=== PATIENT | female | born 1940 | race American Indian/Alaskan Native ===

== ENCOUNTER → 2018-01-04 | Outpatient (CLI) | payer OTHER, MEDICARE ==
[~2018-01-04] VITALS: Ht 165.1 cm; Wt 67.6 kg
[~2018-01-04] MED LIST: ADVAIR HFA 45MC1 AER INH; AMBIEN 5 MG TABL5 M1 PO; APAP500 PO; ASPIRIN EC81 M1 PO; ASPIRIN325 PO; BYSTOLIC 5 MG5 M1 PO; FISH OIL 1,001000 MG PO; HYDROCHLOROTH12.5 MG PO; LEVOTHYROXIN0.125 M1 PO; LEVOTHYROXINE 0.1 MG PO; LEVOXYL75 MCG PO; LISINOPRIL5 MG PO; LODINE 200MG C200 M1 PO; MOBIC15 MG PO; MULTIVITAMINS1 EAC7 PO; NABUMETONE 500500 M1 PO; NITROGLYCERIN0.4 MG SUBLING; OMEPRAZOLE20 M2 PO; OXYCODONE-ACET1 EAC2 PO; PERCOCET 10-651 EACH PO; PLAVIX 75 MG TA75 M1 PO; PRAVASTATIN SOD40 MG PO; RESTASIS1 EACH OPHTHALMIC; TRAMADOL 50 MG50 MG PO; VITAMIN D35000 UNI1 PO; ZEBETA5 MG PO; ZOFRAN4 MG PO
[2018-01-04 14:32] VITALS: BP 153/54
== END | disposition home or self-care (01) ==
LOC: PAIN 06:57
DX: M54.12 Radiculopathy, cervical region (principal); Z88.8 Allergy status to other drugs, medicaments and biological substances; Z91.041 Radiographic dye allergy status; Z79.899 Other long term (current) drug therapy; Z87.891 Personal history of nicotine dependence

== ENCOUNTER → 2018-04-05 | Outpatient (CLI) | payer OTHER, MEDICARE ==
[~2018-04-05] VITALS: Ht 165.1 cm; Wt 69.0 kg
--- NOTE | ~2018-04-05 | HPC ---
[facility] [address] [address] PAIN MANAGEMENT CONSULTATION Name: BRIGITTE INGRAM Room #: REG [facility] M..#: [id number] Admission: 04/05/18 Attend Phys: Harsh Aranda MD Discharge: Date of : 36 Report #: [id number] THIS REPORT FOR: //name// CC: ALOK MORENO Physician staff Harsh Aranda DATE OF SERVICE: 04/05/2018 Followup visit for cervical pain. The patient presents today with a new MRI, which I have been able to review, and I also reviewed the report from the radiologist. She has significant degenerative changes throughout the spine, which are consistent with age. She also has an anterior cervical diskectomy and fusion that has been performed at the level of C2-C3. At that level, she has moderate to severe bilateral facet arthropathy and buckling of the ligamentum flavum. This creates some foraminal stenosis bilaterally. She has similar findings also at C3-C4. There is some mild canal stenosis at several levels due to both ligamentum flavum thickening and protrusion of cervical disks. She has chronic deformities of compression fracture at T1, T4 and T5 noted also on the thoracic MRI. Most of her pain today is radiating up to the occiput, it follows a C2-C3 distribution. I do believe this is cervicogenic and generated likely from the area around the fusion. PHYSICAL EXAMINATION: A pleasant 78-year-old, 5 feet 5 inches, 152 pounds, BMI is 25.3. Blood pressure 168/72, heart rate 59, respirations 16. Pain intensity 6-7/10. She has tenderness at the base of the occiput. She has pain with rotational movements. She has pain that radiates up to the top of the head with neck movements. All neck movements are restricted. IMPRESSION: Cervicalgia related to facet arthropathy C2-C3, C3-C4. RECOMMENDATIONS: Facet injections bilaterally under fluoroscopic guidance. We will perform these when she has a six horse hitch driver and after we received preauthorization. She was discharged to return for the injections in the future. Appointment scheduled. By: [id number] Harsh Aranda MD /nt
[2018-04-05 14:48] VITALS: BP 168/72
--- NOTE | 2018-04-05 15:08 | NUR ---
Pain Clinic Assessment: 1. History of Osteoarthritis: History of Rheumatoid Arthritis: 2. Height: 5 ft. 5 in. 165.1 cm. Weight: 152.2 lb. oz. 69.037 kg. Patient's BMI: 25.3 3. Vital Signs: BP: 168/72 Pulse: 59 Resp: 16 Temp: 02 Sat: 98 ECG Mon: 4. Pain Intensity: 6-7 5. Fall Risk: Dizziness: N Needs help standing or walking: N Fallen in the last 3 months: N Fall risk comments: 6. Patient on Blood Thinner: Clopidogrel Bisulf(Plavix 7. History of Hypertension: N 8. Opioid Therapy greater than 6 weeks: N Opiate Contract Signed: 9. Risk Assessment Tool Provided: 10. Functional Assessment Tool: 11. Recreational Drug Use: Unknown Drug Type: Tobacco Use: Former Smoker Tobacco Type: Amount or Packs/day: How Many Years: Alcohol Use: No Frequency: Quant:
== END ==
LOC: PAIN 07:20
DX: M47.812 Spondylosis without myelopathy or radiculopathy, cervical region (principal); M12.88 Other specific arthropathies, not elsewhere classified, other specified site; Z79.899 Other long term (current) drug therapy

== ENCOUNTER → 2018-04-23 | Outpatient (CLI) | payer OTHER, MEDICARE ==
[~2018-04-23] VITALS: Ht 165.1 cm; Wt 68.1 kg
[~2018-04-23] MED LIST changes: +CELECOXIB100 MG PO
--- NOTE | ~2018-04-23 | HPC ---
[facility] [address] [place] [address] PAIN MANAGEMENT CONSULTATION Name: BRIGITTE INGRAM Room #: REG Marni Clifton.#: [id number] Admission: 04/23/18 Attend Phys: Harsh Aranda MD Discharge: Date of : 36 Report #: [id number] THIS REPORT FOR: //name// CC: ALOK Peralta Physician staff Harsh Aranda DATE OF SERVICE: 04/23/2018 Followup visit for cervicalgia with facet arthropathy and spondylosis. The patient returns to pain clinic today for facet injections. She has an anterior cervical diskectomy and fusion at C2-C3. She has pain emanating from the area around her fusion, particularly above the level. She has pain that radiates through the occiput as well as pain with rotational and lateral tilt maneuvers. I saw her roughly 2 weeks ago, please see that documentation and dictation. We have scheduled her today for facet injections under fluoroscopic guidance. Procedure explained in some detail. She would like to proceed today with the injections. This may be diagnostic as well as therapeutic. PHYSICAL EXAMINATION: She is a kita 78-year-old. Blood pressure 169/79, heart rate 66, respirations 16. She scores her pain today as 7/10. She has pain with neck extension, rotation and lateral tilt. Pain radiates in a referred pattern consistent with the upper facet joints up into the occiput, although she also has some lower facet arthropathy referral into the left shoulder. She has local tenderness overlying the joints posteriorly and laterally. IMPRESSION: 1. Cervicalgia with referred pain related to facet arthropathy C2-C3, C3-C4. 2. Status post anterior cervical diskectomy and fusion. PROCEDURE: Bilateral C2-C3, C3-C4 facet injections under fluoroscopic guidance. DESCRIPTION OF PROCEDURE: After informed consent, she was taken to fluoroscopic suite. She was placed in the prone position. Skin prepped first on the right. Using biplanar fluoroscopic views, I anesthetized the skin and then gently advanced a 25-gauge needle into the joint capsule at C2-C3 and C3-C4. AP and lateral views confirmed location and with the AP view, I injected a 0.25 mL of Omnipaque demonstrating good spread along the capsule with some extension into the facet joint at C2-C3 and no vascular uptake. I then followed this with 1 mL of 0.5% lidocaine mixed with 2 mg of Decadron at each joint level. The needle was removed. The patient was allowed to reposition. I then repeated the procedure in the same fashion on the left injecting the C2-C3, C3-C4 facet joints using the same technique. She tolerated the procedure well. There were [address] [address] PAIN MANAGEMENT CONSULTATION Name: BRIGITTE INGRAM Room #: REG ALEXANDER Quan#: [id number] Admission: 04/23/18 Attend Phys: Harsh Aranda MD Discharge: Date of : 36 Report #: [id number] no complications. She was taken to recovery room for observation. At the time of discharge, it should be noted that her pain score had dropped to 0. She is instructed to resume her Plavix. Followup visit is scheduled for 1 month. We may consider repeating these injections depending on duration of response. A favorable response, I think would give us a good indication that her primary pain generator here is facet joint rather than neuropathic pain. By: [id number] Harsh Aranda MD /nt
[2018-04-23 10:23] VITALS: BP 160/79
--- NOTE | 2018-04-23 10:29 | NUR ---
Pain Clinic Assessment: 1. History of Osteoarthritis: History of Rheumatoid Arthritis: 2. Height: 5 ft. 5 in. 165.1 cm. Weight: 150.2 lb. oz. 68.130 kg. Patient's BMI: 25.0 3. Vital Signs: BP: 160/79 Pulse: 66 Resp: 16 Temp: 02 Sat: 97 ECG Mon: 4. Pain Intensity: 5 5. Fall Risk: Dizziness: N Needs help standing or walking: N Fallen in the last 3 months: N Fall risk comments: 6. Patient on Blood Thinner: Clopidogrel Bisulf(Plavix 7. History of Hypertension: N 8. Opioid Therapy greater than 6 weeks: N Opiate Contract Signed: 9. Risk Assessment Tool Provided: LOW 10. Functional Assessment Tool: 11. Recreational Drug Use: Never Drug Type: Tobacco Use: Former Smoker Tobacco Type: Amount or Packs/day: How Many Years: Alcohol Use: No Frequency: Quant:
== END | disposition home or self-care (01) ==
LOC: PAIN 07:12
DX: M47.892 Other spondylosis, cervical region (principal); M54.2 Cervicalgia; M12.88 Other specific arthropathies, not elsewhere classified, other specified site; Z98.1 Arthrodesis status; Z98.890 Other specified postprocedural states; Z88.8 Allergy status to other drugs, medicaments and biological substances; Z79.899 Other long term (current) drug therapy; Z87.891 Personal history of nicotine dependence

== ENCOUNTER → 2018-06-04 | Outpatient (CLI) | payer OTHER, MEDICARE ==
[~2018-06-04] VITALS: Ht 165.1 cm; Wt 67.6 kg
[~2018-06-04] MED LIST changes: +HYDROCODONE-AP1 EA11 PO
[2018-06-04 10:10] VITALS: BP 143/56
--- NOTE | 2018-06-04 10:24 | NUR ---
Pain Clinic Assessment: 1. History of Osteoarthritis: History of Rheumatoid Arthritis: 2. Height: 5 ft. 5 in. 165.1 cm. Weight: 149.0 lb. oz. 67.586 kg. Patient's BMI: 24.8 3. Vital Signs: BP: 143/56 Pulse: 70 Resp: 16 Temp: 02 Sat: 97 ECG Mon: 4. Pain Intensity: 7-8 RIGHT SIDE 5. Fall Risk: Dizziness: N Needs help standing or walking: N Fallen in the last 3 months: N Fall risk comments: 6. Patient on Blood Thinner: Clopidogrel Bisulf(Plavix 7. History of Hypertension: N 8. Opioid Therapy greater than 6 weeks: N Opiate Contract Signed: 9. Risk Assessment Tool Provided: LOW 10. Functional Assessment Tool: 11. Recreational Drug Use: Never Drug Type: Tobacco Use: Former Smoker Tobacco Type: Amount or Packs/day: How Many Years: Alcohol Use: No Frequency: Quant:
--- NOTE | 2018-06-06 15:29 | HPC ---
[facility] [address] [place] [address] PAIN MANAGEMENT CONSULTATION Name: BRIGITTE INGRAM Room #: REG Marni MLuanne.#: [id number] Admission: 06/04/18 ������������������ Attend Phys: Harsh Aranda MD Discharge: ������������������ Date of : 36 Report #: [id number] THIS REPORT FOR: //name// CC: Rachelle Aranda DATE OF SERVICE: 06/04/2018 Followup visit for cervicalgia with facet arthropathy. The patient returns to the pain clinic today and has responded fairly well on the right to her facet injections, but on the left she reports that she still has ongoing pain. We talked about possibly repeating these injections in the future, although she is a little reluctant. She reminded me that she had had radiofrequency ablation in another pain clinic for the same problem and has been in severe pain ever since. She blames that procedure for her chronic pain. She is a bit reluctant to undergo procedures at this time and asked what else we have to offer. She is not a surgical candidate by any means. It is my belief that it is reasonable for her to continue to use medication to help with her chronic pain even an opioid. Hydrocodone 5/325 can be helpful and she takes it sparingly. I have suggested that she increase the dose of the medication to take one in the morning and one in the evening and I would not be opposed to providing it for her three times a day. This would be a total of 15 mg of hydrocodone or 15 morphine milligram equivalents a relatively low dose. She denies side effects from the medication. Other nonopioid medications such as gabapentin and muscle relaxants cause significant side effects with dizziness. She has none of that with the hydrocodone. The pain relief is modest, but it does help and I think that is the best we can probably offer with medication. We spent 15-20 minutes today in counseling, discussing chronic pain and the fact that it is not something that can be fixed. PHYSICAL EXAMINATION: She is 5 feet 5 inches with BMI of 24.8. Her blood pressure 143/56, heart rate 70 and respirations 16. Her pain intensity is 7 to 8 on the right side of her neck and it is down to about a 0 to 2 on the left following the injections. She easily moves from sitting to standing position, has a steady gait and does not appear to be a fall risk. Cervical range of motion is limited with most of the tenderness located high in the neck in the ranges C2-C3 and C3-C4 facet joints. She has lateral tilt discomfort primarily today. PQRS notes that there is no hypertension, but she is on a blood thinner for cardiac issues. She is considered at low risk for addiction by the opioid risk [address] [address] PAIN MANAGEMENT CONSULTATION Name: BRIGITTE INGRAM Room #: REG ALEXANDER Quan#: [id number] Admission: 06/04/18 ������������������ Attend Phys: Harsh Aranda MD Discharge: ������������������ Date of : 36 Report #: [id number] tool and is not currently on an opioid agreement, but if we continue I will have her sign one. She denies tobacco and alcohol. IMPRESSION: 1. Chronic cervicalgia with spondylosis. Facet arthropathy at C2-C3 and C3-C4 bilaterally. 2. Status post anterior cervical diskectomy and fusion. 3. Management of high risk medication at low dose for chronic intractable pain. PLAN: Prescription was provided for her for [place] 7.5/325, #60 tablets 1 tablet b.i.d. I will plan to see her back in the pain clinic in 2 months. ��������������������������������������������� <ELECTRONICALLY SIGNED> ���������������������������������������� By: Harsh Aranda MD ��������������������������������������������� 06/06/18 1529 [id number] Harsh Aranda MD /nt
== END ==
LOC: PAIN 06:54
DX: M47.812 Spondylosis without myelopathy or radiculopathy, cervical region (principal); G89.4 Chronic pain syndrome; Z79.899 Other long term (current) drug therapy; Z98.1 Arthrodesis status